=== PATIENT | female | born 2000 | race African-American/Black ===

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

== ENCOUNTER 2021-06-09 05:55 | Emergency (ER) | payer BC, OTHER ==
[~2021-06-09] VITALS: Ht 162.6 cm; Wt 93.9 kg
[~2021-06-09 05:55] MED LIST changes: +HYDROCODON-ACE1 EAC7 PO; +IBUPROFEN 800800 M1 PO
[2021-06-09 06:38] LABS: HEMATOCRIT 37.5 % (37.0-47.0); HEMOGLOBIN 12.7 gm/dL (12.0-15.0); MCH 28.6 pg (26.0-34.0); MCHC 33.9 g/dL (28.0-37.0); MCV 84.3 fL (80.0-100.0); PLATELET COUNT 350 thou/uL (150-400); RBC 4.45 mil/uL (4.20-5.00); WBC 20.6 thou/uL (4.0-11.0)
[2021-06-09 06:44] LABS: ANION GAP 11 mmol/L (7-16); BUN 10 mg/dL (7-18); CALCIUM 9.1 mg/dL (8.5-10.1); CHLORIDE 102 mmol/L (98-107); CO2 23 mmol/L (21-32); CREATININE 0.9 mg/dL (0.6-1.0); GLUCOSE 141 mg/dL (74-106); POTASSIUM 3.6 mmol/L (3.5-5.1); SODIUM 136 mmol/L (136-145)
[2021-06-09 06:54] LABS: ALBUMIN 4.1 g/dL (3.4-5.0); DIRECT BILIRUBIN 0.1 mg/dL (<0.1-0.2); SGOT 12 U/L (15-37); SGPT 21 U/L (14-59); TOTAL BILIRUBIN 0.5 mg/dL (0.2-1.0); TOTAL PROTEIN 8.2 g/dL (6.4-8.2)
[2021-06-09 07:29] LABS: URINE BILIRUBIN NEGATIVE (Negative); URINE BLOOD TRACE (Negative); URINE CLARITY CLEAR; URINE COLOR YELLOW; URINE GLUCOSE-RANDOM* NEGATIVE (Negative); URINE KETONES NEGATIVE (Negative); URINE LEUKOCYTES-REFLEX NEGATIVE (Negative); URINE NITRITE-REFLEX NEGATIVE (Negative); URINE PROTEIN (DIPSTICK) NEGATIVE (Negative); URINE SPECIFIC GRAVITY 1.015 (1.005-1.035); URINE UROBILINOGEN 0.2 E.U./dl (0.2-1.0)
--- NOTE | 2021-06-09 08:15 | EKG ---
[address] [address] ELECTROCARDIOGRAM REPORT Name: DILIA CAMARENA Room #: REG DARIO [place]#: [id number] Admission: 06/09/21 Attend Phys: Discharge: Date of : 2 Report #: [id number] [facility] ED Test Date: 2021-06-09 Test Time: 06:19:18 Pat Name: DILIA CAMARENA Department: Room: Gender: F [employer] Technician: VALERIA : 2000 Requested By: Jose Raul Machado Order Number: [id number] MD: Shmuel Mistry Measurements Intervals [place] Rate: 139 P: 59 CT: 157 QRS: 91 QRSD: 86 T: -9 QT: 259 QTc: 394 Interpretive Statements Sinus tachycardia Low voltage in the lateral leads No previous ECG available for comparison Electronically Signed On 06-09-2021 8:15:09 CDT by Shmuel Mistry [email or web address] <ELECTRONICALLY SIGNED> By: Shmuel Mistry MD, [facility] 06/09/21 0815 0619 0619 Shmuel Mistry MD, FACC /EPI
[2021-06-09 09:09] LABS: ABSOLUTE NEUTROPHILS 18.1 thou/uL (1.4-8.2); PLATELET ESTIMATE NORMAL
[2021-06-09 09:30] VITALS: BP 115/78
== END 2021-06-09 09:30 | disposition home or self-care (01) ==
LOC: ER 05:55
PROVIDERS: Student in an Organized Health Care Education/Training Program
DX: J06.9 Acute upper respiratory infection, unspecified (principal); Z20.822 Contact with and (suspected) exposure to COVID-19; R50.9 Fever, unspecified; Z79.891 Long term (current) use of opiate analgesic; Z79.1 Long term (current) use of non-steroidal anti-inflammatories (NSAID); Z79.899 Other long term (current) drug therapy